=== PATIENT | female | born 1990 | race Caucasian/White ===

== ENCOUNTER 2022-08-05 22:26 | Emergency (ER) | payer OTHER ==
[~2022-08-05] VITALS: Ht 165.1 cm; Wt 90.0 kg
[2022-08-05 22:40] VITALS: BP 147/81
[2022-08-05] MEDS ORDERED: KETOROLAC 30MG/ML VIAL IM ONE (23:45)
== END 2022-08-06 01:30 | disposition home or self-care (01) ==
LOC: ER 22:26
DX: S80.11XA Contusion of right lower leg, initial encounter (principal); F41.9 Anxiety disorder, unspecified; J45.909 Unspecified asthma, uncomplicated; F43.10 Post-traumatic stress disorder, unspecified; V43.52XA Car driver injured in collision with other type car in traffic accident, initial encounter; Y93.89 Activity, other specified; Y92.488 Other paved roadways as the place of occurrence of the external cause
CPT/HCPCS: 71045; 73590; 81025; 96372; 99284; J1885